=== PATIENT | male | born 1955 | race Caucasian/White ===

== ENCOUNTER 2021-03-30 15:41 | Outpatient (CLI) | payer BC | END 2021-03-30 15:42 | disposition home or self-care (01) | LOC: CSHULT 15:41 | PROVIDERS: ATTEND Family Medicine | DX: M25.562 Pain in left knee (principal); M71.20 Synovial cyst of popliteal space [Baker], unspecified knee; R60.0 Localized edema; I82.402 Acute embolism and thrombosis of unspecified deep veins of left lower extremity ==

== ENCOUNTER 2022-03-20 14:36 | Outpatient (CLI) | payer MEDICARE, BC | END 2022-03-20 14:37 | disposition home or self-care (01) | LOC: CSHULT 14:36 | PROVIDERS: ATTEND Family Medicine | DX: M79.605 Pain in left leg (principal) ==

== ENCOUNTER 2025-02-23 14:49 | Outpatient (CLI) | payer MEDICARE, BC | END 2025-02-23 14:50 | disposition home or self-care (01) | LOC: CSHULT 14:49 | PROVIDERS: ATTEND Family Medicine | DX: M79.605 Pain in left leg (principal); M79.89 Other specified soft tissue disorders; Z86.718 Personal history of other venous thrombosis and embolism; I82.432 Acute embolism and thrombosis of left popliteal vein; I82.412 Acute embolism and thrombosis of left femoral vein ==